=== PATIENT | male | born 1980 | race Caucasian/White ===

== ENCOUNTER 2025-10-05 22:45 | Emergency (ER) | payer OTHER ==
[~2025-10-05] VITALS: Ht 177.8 cm; Wt 100.7 kg
--- NOTE | 2025-10-05 23:22 | Physician Documentation ---
History of Present Illness Chief Complaint: Vomiting Stated Complaint: VOMITING Time Seen by MD: 23:11 OK to notify your PCP?: Yes Source: patient, RN/MD, RN notes reviewed, old records Mode of Arrival: POV Exam Limitations: no limitations HPI Pleasant patient has a history of marijuana use and vomiting. He smoked tonight and developed severe retching uncontrollable vomiting. He is diaphoretic he is ill-appearing uncomfortable denies any bloody vomiting. at bedside he is otherwise in good health has no other complaints. He was doing perfectly well earlier today. Medication Reconciliation Allergies: Coded Allergies: No Known Allergies (Unverified , 10/05/25) Scheduled Pantoprazole Sodium (Protonix), 1 TAB PO DAILY Past Medical History Past Medical History: Gastritis Past Surgical History: other (Vasectomy) Smoking Status: Current every day smoker Alcohol Use: Occasionally Drug Use: marijuana Review of Systems All Other Systems at this time: Reviewed and Negative Physical Exam Vital Signs: RN Vital Signs have been reviewed: Yes, Temperature: 96.2, Source: Oral, Heart Rate: 65, Respiratory Rate: 18, BP: 14/119, Pulse Oximetry: 99, Weight: 100.700 Physical Exam General: The patient is well developed, well nourished, nontoxic appearing and is in mild acute distress. Diaphoretic Skin: [place], warm and dry with no rashes. HEENT: Head was normocephalic and atraumatic. Eyes - pupils equal, round, reactive to light and accommodation. Extraocular movements were intact. Conjunctivae were nonicteric. The mouth and oropharynx were clear with moist mucous membranes. There were no pharyngeal exudates or erythema. Neck: Supple and nontender. There was no jugular venous distention, lymphadenopathy, thyromegaly or masses. Chest: Clear to auscultation bilaterally without wheezes, rales or rhonchi. No accessory muscle use. No dullness to percussion. Heart: Rate regular and rhythmic. S1, S2. No murmurs. Palpation of the chest wall was normal. No rubs or thrills. Abdomen: Soft, nontender and nondistended. Positive bowel sounds. No guarding or rebound. No hepatosplenomegaly or palpable masses. Extremities: No cyanosis, clubbing or edema. The patient moves all extremities. Pulses were equal and symmetric. Neurologic: Motor sensory grossly intact Psychologic: The patient was oriented to person, place and time. The patient demonstrated appropriate judgement and insight. Progress Results/Orders Reviewed/noted all lab results: Yes Results/Orders Orders - NUBIA HESTER MD Urinalysis, Cult If Indicated (10/05/25 22:59) Cbc/Diff (10/05/25 22:59) BMP (10/05/25 22:59) Lipase (10/05/25 22:59) CMP (10/05/25 22:59) Normal Saline 1000ml (0.9% Sodium Chlori (10/05/25 23:15) Ethanol (10/05/25 23:12) MG (10/05/25 23:12) Drug Screen, Urine (10/05/25 23:12) Haloperidol Lact. (Haldol) (10/05/25 23:20) Diphenhydramine Inj (Benadryl Inj.) (10/05/25 23:20) Pantoprazole 40mg Iv (Protonix 40mg Iv) (10/05/25 23:20) Completed Orders - NUBIA HESTER MD Prochlorperazine Inj (Compazine Inj) (10/05/25 23:15) Vital Signs 10/05/25 22:53 Temp 96.2 Pulse 65 Resp 18 B/P (MAP) 14/119 Pulse Ox 99 Re-Evaluation Re-Evaluation : Re-Evaluation: Improved Progress Patient presents with classic symptoms of cannabinoid syndrome hyperemesis. Patient received IV fluids given a cocktail of medications which included Haldol Protonix morphine Benadryl and Compazine. Patient has been sleeping comfortably in the longer vomiting. He is allowed to rest. He was then discharged home in the morning. Patient's laboratory work was obtained. Has a slight leukocytosis with a white count of 13.7 but no anemia slight left shift of 85.3. Chemistry was also within normal limits lipase 66 LFTs within normal limits. Mild prerenal dehydration with a BUN of 20 and creatinine 1.23 otherwise within normal limits. Alcohol negative tox screen pending he has not produced any urine at this time. Continuous traffic monitor specialist interpretation shows normal sinus rhythm heart rate 60s, no ectopy, normal, my interpretation. Pulse oximetry monitor interpretation shows normal oxygenation at 99% room air, normal, my interpretation. 2:30 a.m. patient is requesting to go home did not have a 2 L isn't requesting additional medications. Patient was given prescription and discharged home. Medical Decision Making Additional information obtaine: old records Findings Cyclic vomiting, electrolyte abnormalities, gastritis, esophagitis were considered Differential Dx:Considerations: Cholangitis, Cholelithasis, Constipation, Diverticular disease, Esophageal rupture, Esophagitis, Gastritis/PUD, Gastroenteritis, GI hemorrhage, Hernia, Hepatitis, Inflammatory BD, Ischemic bowel, Pancreatitis, Porphyria, Testicular torsion, Urinary obstruction, Urinary tract infection, Urolithiasis, Other Departure Disposition: 01 HOME / SELF CARE / HOMELESS Impression: Primary Impression: Cannabinoid hyperemesis syndrome Condition: Stable Discharge Instructions: Cannabinoid Hyperemesis Syndrome Referrals: NO PRIMARY CARE PROVIDER (PCP) Prescriptions Pantoprazole Sodium (Protonix) 20 Mg Tablet.dr 1 TAB PO DAILY for 14 Days, #14 TAB 0 Refills Prov: NUBIA HESTER MD 10/06/25 Education Educated: Patient Educated regarding: diagnosis, need for follow up, other Signature Scribe Signature: . Attestation: The note accurately reflects work and decisions made by me.Nubia Hester MD 10/06/25 02:20 NUBIA HESTER MD Oct 05, 2025 23:22
[2025-10-05 23:26] LABS: MEAN PLATELET VOLUME 8.1 FL (7.4-10.4); RED CELL DISTRIBUTION WIDTH 13.1 % (11.5-14.5)
[2025-10-05] MEDS: normal saline 1000ml 1,000 ML IV ONE (23:43)
[2025-10-05 23:44] LABS: CREATININE 1.23 MG/DL (0.60-1.10); TOTAL CARBON DIOXIDE 28.0 MMOL/L (24-32); eCRCL 80 ML/MIN; eGFR 64 ML/MIN
[2025-10-05 23:48] LABS: ETHANOL < 10 MG/DL (<10)
--- NOTE | 2025-10-05 23:54 | ELECTROCARDIOGRAPH REPORT ---
[facility] Test Date: 2025-10-05 Test Time: 23:51:29 Pat Name: DEEPTHI FAITH Department: PSYCHIATRIC- Room: Gender: M [employer]: TYLER : 1980 Requested By: NUBIA SANCHEZ Order Number: [id number] Reading MD: Dr. Nubia Sanchez Measurements Intervals [place] Rate: 49 P: 16 [place]: 136 QRS: 78 QRSD: 100 T: 58 QT: 479 QTc: 433 Interpretive Statements Sinus bradycardia Abnormal R-wave progression, early transition Electronically Signed On 10-06-2025 0:45:[address] Nubia Sanchez Please click the below link to view image of tracing.
[2025-10-06] MEDS: haloperidol lactate 5mg/ml inj IM ONE (00:36)
[2025-10-06] MEDS: ringers solution, lacted 1,000 ML IV ONE (01:00)
[2025-10-06] MEDS ORDERED: PANT20TA18 PO (01:01)
[2025-10-06 02:53] VITALS: BP 131/74; PULSE 50; RESP 29; TEMP 98.3; O2SAT 97
== END 2025-10-06 02:55 | disposition home or self-care (01) ==
LOC: ER 22:46
DX: R11.16 Cannabis hyperemesis syndrome (principal); F12.90 Cannabis use, unspecified, uncomplicated; F17.200 Nicotine dependence, unspecified, uncomplicated; Z79.899 Other long term (current) drug therapy
CPT/HCPCS: 36415; 80053; 80320; 83690; 83735; 85025; 93005; 96361; 96372; 96374; 96375; 99285; J0780; J1200; J1630; J2470; J7030